=== PATIENT | female | born 1940 | race Caucasian/White ===

== ENCOUNTER 2025-03-18 04:57 | Emergency (ER) | payer MEDICARE, OTHER ==
[~2025-03-18] VITALS: Ht 167.6 cm; Wt 76.2 kg
[~2025-03-18 04:57] MED LIST: GABA100C; LISI20TA56; TRIA25CA
--- NOTE | 2025-03-18 05:20 | ED.PDOC ---
Cedric. trauma (HPI) HPI Comments 85-year-old female with hypertension brought in by ambulance to the ER for the chief complaint of rib pain and right elbow pain after mechanical fall. Patient woke up to go to the bathroom earlier this morning, she was trying to turn and sit on the commode when she experienced a mechanical fall, and her right chest h it the side of the shower, and she landed on her right elbow. She denies dizziness, lightheadedness, feeling of warmth or cold prior to the fall. She denied loss of consciousness, any abnormal seizure-like activity or loss of urine or bowel during the episode. Patient reports right elbow pain and skin tear, she says that she has pleuritic chest pain, worsens with deep breaths, located on the right lower rib. Patient is vitally stable. Denies taking any blood thinners Past medical history: Hypertension, trigeminal neuralgia Home medications, gabapentin, hydrochlorothiazide Patient seen and examined, no bruises on chest or abdomen noted. She is alert and oriented. Right elbow has a skin tear. Chief Complaint: Fall Injury Time Seen by MD: 05:09 Reviewed notes: Nurses Notes, [facility] [employer] Notes Allergies: Coded Allergies: NO KNOWN ALLERGIES (Unverified , 04/02/10) Home Meds Active Scripts Bacitracin (Bacitracin Oint) 1 Applic Ap, 1 APPLIC TOP BIDP PRN for 5 Days, #10 APPLIC 0 Refills Prov:RANDY ALONZO RESIDENT 03/18/25 Reported Medications Hydrochlorothiazide W/Triamter (Hctz/Triamterene) 1 Cap Cap 04/02/10 Gabapentin (Neurontin) 100 Mg Cap 04/02/10 Lisinopril (Lisinopril) 20 Mg Tab 04/02/10 Information Source: Patient Mode of Arrival: EMS Past Medical History Past Medical History (Other): Hypertension, trigeminal neuralgia Constitutional: denies: chills, diaphoresis, fatigue, fever, malaise, sweats, weakness, others EENTM: denies: blurred vision, double vision, ear bleeding, ear discharge, ear drainage, ear pain, ear ringing, eye pain, eye redness, hearing loss, mouth pain, mouth swelling, nasal discharge, nose bleeding, nose congestion, nose pain, photophobia, tearing, throat pain, throat swelling, voice changes, others Respiratory: denies: cough, hemoptysis, orthopnea, SOB at rest, shortness of breath, SOB with excertion, stridor, wheezing, others Cardiovascular: denies: chest pain, dizzy spells, diaphoresis, Dyspnea on exertion, edema, irregular heart beat, left arm pain, lightheadedness, palpitations, PND, syncope, others Gastrointestinal: reports: abdominal pain Genitourinary: denies: abnormal vagina bleeding, burning, dyspareunia, dysuria, flank pain, frequency, hematuria, incontinence, pain, , vagina discharge, urgency, others Neurological: denies: dizziness, fainting, headache, left sided numbness, left sided weakness, numbness, paresthesia, pre-existing deficit, right sided numbness, right sided weakness, seizure, speech problems, tingling, tremors, weakness, others Musculoskeletal: denies: back pain, gout, joint pain, joint swelling, muscle pain, muscle stiffness, neck pain, others Integumetry: reports: wounds; denies: bruises, change in color, change in hair/nails, dryness, laceration, lesions, lumps, rash, others Allergic/Immunocompromised: denies: Difficulty Healing, Frequent Infections, Hives, Itching, others Hematologic/Lymphatic: denies: anemia, blood clots, easy bleeding, easy bruising, swollen glands, others Endocrine: denies: excessive hunger, excessive sweating, excessive thirst, excessive urination, flushing, intolerance to cold, intolerance to heat, unexplained weight gain, unexplained weight loss, others Psychiatric: denies: anxiety, bipolar disorder, depression, hopeless, panic disorder, schizophrenia, sleepless, suicidal, others Physical Exam General Appearance: No Apparent Distress HEENT: Pharynx Normal Neck: NOT DONE Respiratory: Decreased Breath Sounds, No Accessory Muscle Use, No Respiratory Distress Cardiovascular: No JVD, Other (Nonpitting edema) Breast Exam: Deferred Gastrointestinal: Normal Bowel Sounds, Other (Right upper chest tenderness, no bruising seen) Genitalia: Deferred Pelvic: Deferred Rectal: Deferred Extremities: Swelling Neurologic: NOT DONE Cerebellar Function: NOT DONE Reflexes: NOT DONE Skin: Dry Lymphatic: NOT DONE Was a procedure done? Was a procedure done?: No Differential Diagnosis Multiple Trauma: Pulmonary Contusion, Abrasions, Contusion, Hematoma X-Ray, Labs, Meds, VS Vital Signs Date Time Temp Pulse Resp B/P (MAP) Pulse Ox O2 Delivery O2 Flow Rate FiO2 03/18/25 06:00 97.7 70 16 126/62 (83) 92 97.7 03/18/25 05:22 97.7 85 15 119/62 (81) 100 97.7 03/18/25 05:22 Room Air* 0 21 03/18/25 05:09 97.9 102 18 142/82 98 97.9 Lab Test 03/18/25 05:38 Range/Units White Blood Count 4.8 4.4-10.8 10^3/uL Red Blood Count 4.77 4.0-5.20 10^6/uL Hemoglobin 14.9 12.2-16.2 g/dL Hematocrit 44.4 36.0-46.0 % Mean Corpuscular Volume 93.1 80.0-100.0 fL Mean Corpuscular Hemoglobin 31.2 28.0-32.0 pg Mean Corpuscular Hemoglobin Concent 33.5 32.0-36.0 g/dL Red Cell Distribution Width 14.1 11.8-14.3 % Platelet Count 156 140-450 10^3/uL Mean Platelet Volume 7.0 6.9-10.8 fL Neutrophils (%) (Auto) 75.1 37.0-80.0 % Lymphocytes (%) (Auto) 16.2 10.0-50.0 % Monocytes (%) (Auto) 7.2 0.0-12.0 % Eosinophils (%) (Auto) 1.1 0.0-7.0 % Basophils (%) (Auto) 0.4 0.0-2.0 % Neutrophils # (Auto) 3.6 1.6-8.6 10 ^3/uL Lymphocytes # (Auto) 0.8 0.4-5.4 10 ^3/uL Monocytes # (Auto) 0.3 0-1.3 10 ^3/uL Eosinophils # (Auto) 0.1 0-0.8 10 ^3/uL Basophils # (Auto) 0 0-0.2 10 ^3/uL Nucleated Red Blood Cells 0.1 % Sodium Level 143 136-145 mmol/L Potassium Level 3.9 3.5-5.1 mmol/L Chloride Level 105 98-107 mmol/L Carbon Dioxide Level 28 20-31 mmol/L Anion Gap 10 5-15 Blood Urea Nitrogen 6 L 9-23 mg/dL Creatinine 0.76 0.550-1.02 mg/dL Glomerular Filtration Rate Calc 76 >90 mL/min BUN/Creatinine Ratio 7.9 L 10.0-20.0 Serum Glucose 99 74-106 mg/dL Calcium Level 8.8 8.7-10.4 mg/dL X-Ray, Labs, Meds, VS Comment Elbow x-ray unremarkable Right-sided Rib x-ray unremarkable Images Reviewed?: Images reviewed and evaluated by me Time of 1ST Reevaluation: 07:00 Reevaluation 1ST: Improved (Rib pain has improved) Consultation: PCP Patient Education/Counseling: Diagnosis, Treatment Family Education/Counseling: No Family Present Departure 1 Departure Time of Disposition: 08:00 Impression: Primary Impression: Accident due to mechanical fall without injury Additional Impression: Rib pain on right side Disposition: 01 HOME / SELF CARE / HOMELESS Condition: Stable e-Prescriptions Bacitracin (Bacitracin Oint) 1 Applic Ap 1 APPLIC TOP BIDP PRN for 5 Days, #10 APPLIC 0 Refills Prov: RANDY ALONZO RESIDENT 03/18/25 Discharged With: Self Comments Tetanus injection has been administered, wound has been cleaned Continue applying bacitracin ointment twice daily Keep the wound dry and clean, away from dirt and heat Follow up with primary care physician within the next 3 days Please return to ER or call your doctor in case of worsening pain, redness, sw elling, bruising, change in acute status, shortness of breaths, chest pain or recurrent falls Critical Care Note Critical Care Time?: No Stability Stability form required: RANDY Minor RESIDENT Mar 18, 2025 05:20
[2025-03-18 06:15] LABS: Chloride 105 mmol/L (98-107); Potassium 3.9 mmol/L (3.5-5.1); Sodium 143 mmol/L (136-145)
[2025-03-18 06:16] LABS: Anion Gap 10 (5-15); Calcium 8.8 mg/dL (8.7-10.4); Carbon Dioxide 28 mmol/L (20-31)
[2025-03-18 06:21] LABS: BUN/Creatinine Ratio 7.9 (10.0-20.0); Glucose 99 mg/dL (74-106)
[2025-03-18 06:24] LABS: Hematocrit 44.4 % (36.0-46.0); Hemoglobin 14.9 g/dL (12.2-16.2); Mean Corpuscular Hemoglobin 31.2 pg (28.0-32.0); Mean Corpuscular Volume 93.1 fL (80.0-100.0); Nucleated Red Blood Cells % 0.1 %
[2025-03-18 06:30] LABS: Blood Urea Nitrogen 6 mg/dL (9-23)
--- NOTE | 2025-03-18 07:01 | DVH ---
CLINICAL INDICATION: r elbow injury TECHNIQUE: XY R ELBOW 2V XRAY Comparison: None FINDINGS/IMPRESSION: : There is no evidence of acute fracture or dislocation. Soft tissues are unremarkable.
[2025-03-18] MEDS ORDERED: BAC09TP TOP (07:07)
[2025-03-18 07:55] VITALS: BP 126/72; PULSE 78; RESP 20; TEMP 97.7; O2SAT 93
--- NOTE | 2025-03-18 07:58 | DVH ---
EXAMINATION: XY R RIB XRAY INDICATION: fall, rib pain COMPARISON: None TECHNIQUE: Frontal view of the chest and 2 views of the right ribs history FINDINGS: No focal consolidation, pleural effusion or significant pneumothorax. Normal cardiomediastinal silhou ette. No displaced right rib fracture. IMPRESSION: No acute cardiopulmonary disease. No displaced right rib fracture.
[2025-03-18 08:00] VITALS: PULSE 79
[2025-03-18] MEDS: ACETAMINOPHEN 325 MG TAB PO ONE (08:12)
[2025-03-18] MEDS: TETANUS-DIPTH-ACEL PERTUSSIS 0.5ML SYR Tdap IM ONE (08:13)
== END 2025-03-18 10:00 | disposition home or self-care (01) ==
LOC: ER 04:57 → EDBD 04:57 → ER 10:00
DX: R07.89 Other chest pain (principal); I10 Essential (primary) hypertension; Z79.899 Other long term (current) drug therapy; W01.10XA Fall on same level from slipping, tripping and stumbling with subsequent striking against unspecified object, initial encounter; Y93.89 Activity, other specified; Y92.89 Other specified places as the place of occurrence of the external cause; Y99.8 Other external cause status
CPT/HCPCS: 36415; 71101; 73070; 80048; 85025; 90471; 90715